=== PATIENT | female | born 1945 | race Caucasian/White ===

== ENCOUNTER 2017-10-13 14:43 | Emergency (ER) | payer MEDICARE ==
[2017-10-13] MEDS ORDERED: Fentanyl 100 MCG/2 ML VIAL ONE ×2 (15:19→18:20)
[2017-10-13] MEDS ORDERED: Ondansetron ODT 4 MG TAB ONE (15:19)
--- NOTE | 2017-10-13 15:25 | RAD ---
LEFT WRIST 3 VIEWS: Date: 10/13/17 HISTORY: Fall with injury and pain to wrist. FINDINGS: There is a transverse, slightly comminuted, impacted fracture of the distal radius with dorsal angula tion of the distal fragments, consistent with Colles type fracture. There is associated fracture of the ulnar styloid. IMPRESSION: Fracture distal radius and ulna. POS: [facility]
[2017-10-13] MEDS ORDERED: Lidocaine 1% PF 5 ML VIAL ONE (16:18)
--- NOTE | 2017-10-13 18:16 | RAD ---
TWO VIEWS LEFT WRIST 10/13/17 at 3:58 p.m. COMPARISON: 10/13/17 at 2:20 p.m. HISTORY: Fracture status post reduction. FINDINGS: The patient is reimaged in the frontal and lateral projection with casting material present. There is prominent residual dorsal displacement and dorsal angulation involving the comminuted distal left ra dial fracture. There is a fracture at the base of the ulnar styloid which is unchanged. IMPRESSION: Fracture deformity involving distal left radius and ulna. There is significant residual dorsal displa cement and dorsal angulation of the distal radial fracture on the lateral view. POS: [facility]
== END 2017-10-13 19:00 | disposition home or self-care (01) ==
LOC: ERS 14:43
DX: S52.502A Unspecified fracture of the lower end of left radius, initial encounter for closed fracture (principal); S52.612A Displaced fracture of left ulna styloid process, initial encounter for closed fracture; E11.9 Type 2 diabetes mellitus without complications; E78.5 Hyperlipidemia, unspecified; E78.2 Mixed hyperlipidemia; Z79.899 Other long term (current) drug therapy; W01.0XXA Fall on same level from slipping, tripping and stumbling without subsequent striking against object, initial encounter
CPT/HCPCS: 29125; 90471; 96374; 96375; 96376; J2001; J3010; Q0162

== ENCOUNTER 2017-10-14 06:39 | Emergency (ER) | payer MEDICARE ==
[2017-10-14] MEDS ORDERED: HYDROcodone/Acetaminophen 5/325 mg Tablet ONE (07:36)
--- NOTE | 2017-10-14 09:23 | RAD ---
LEFT WRIST 3 VIEWS: HISTORY: A 72-year-old female with a history of left arm pain following injury. COMPARISON: 10/13/17. FINDINGS: Again noted is a comminuted distal radial fracture with dorsal angulation and some foreshortening, bu t overall improved from the 10/13 study with splint placement. Displaced ulnar styloid process fractu re. IMPRESSION: Comminuted distal radial metadiaphyseal fracture with some extension intraarticularly as well as some dorsal angulation, but improved from the prior study. Stabilization with plaster splint. Bone dom neralization. Minimally displaced ulnar styloid process fracture. POS: [facility]
== END 2017-10-14 09:13 | disposition home or self-care (01) ==
LOC: ERS 06:39
DX: S52.502A Unspecified fracture of the lower end of left radius, initial encounter for closed fracture (principal); E11.9 Type 2 diabetes mellitus without complications; E78.5 Hyperlipidemia, unspecified; E78.2 Mixed hyperlipidemia; X58.XXXA Exposure to other specified factors, initial encounter

== ENCOUNTER 2017-11-19 14:53 | Outpatient (CLI) | payer MEDICARE | END 2017-11-19 14:54 | disposition home or self-care (01) | LOC: BICMAMMO 14:53 | PROVIDERS: ATTEND Internal Medicine Rheumatology | DX: M81.0 Age-related osteoporosis without current pathological fracture (principal) | CPT/HCPCS: 77080 ==

== ENCOUNTER 2018-05-24 01:28 | Emergency (ER) | payer MEDICARE ==
[2018-05-24 02:09] LABS: #Basophils 0.1 thou/uL (0.0-0.2); #Eosinphils 0.3 thou/uL (0.0-0.7); #Lymphocytes 2.4 thou/uL (1.20-3.40); #Monocytes 0.7 thou/uL (0.11-0.59); #Neutrophils 6.5 thou/uL (1.40-6.50); %Basophils 0.6 % (0.0-1.0); %Eosinophils 2.6 % (0.0-10.0); %Monocytes 7.1 % (0.0-10.0); %Neutrophils 65.7 % (42.0-75.0); Hemoglobin 13.2 g/dL (12.0-16.0); Mean Corpuscular HGB CONC 33.9 g/dL (32.0-36.0); Mean Corpuscular Hemoglobin 30.9 pg (27.0-31.0); Mean Corpuscular Volume 91.3 fL (78.0-98.0); Mean Platelet Volume 8.9 fL (7.4-10.4); Platelet Count 215 thou/uL (130-400); RBC Distribution Width 12.2 % (11.5-14.5); Red Blood Cell (RBC) Count 4.28 mill/uL (4.20-5.40)
[2018-05-24 02:16] LABS: Bilirubin Negative (Negative); Blood, Urine Large (Negative); Clarity TURBID (Clear); Glucose, Urine (Dipstick) Negative (Negative); Leukocyte Large (Negative); Nitrite Negative (Negative); Protein, Urine (Dipstick) 100 mg/dL (Neg-Trace); Specific Gravity, Urine 1.007 (1.002-1.036); Urobilinogen 0.2 mg/dL (0.2-1.0); pH, Urine 5.5 (5.0-9.0)
[2018-05-24 02:16] LABS: ALT (SGPT) 21 U/L (8-55); AST (SGOT) 21 U/L (5-34); Albumin 4.7 g/dL (3.4-4.8); Alkaline Phosphatase 61 U/L (40-150); Anion Gap 16 mmol/L (10-20); BUN (Urea Nitrogen) 15 mg/dL (9.8-20.1); Bilirubin, Total 0.4 mg/dL (0.2-1.2); Calc. Creatinine Clearance 0 mL/min (70-130); Calcium 10.1 mg/dL (7.8-10.44); Carbon Dioxide 24 mmol/L (23-31); Chloride 103 mmol/L (98-107); Estimated GFR-MDRD 57; Globulin 3.3 g/dL (2.4-3.5); Glucose 149 mg/dL (83-110); Potassium 3.9 mmol/L (3.5-5.1); Sodium 139 mmol/L (136-145)
[2018-05-24 02:19] LABS: Bacteria/HPF Rare-Few HPF (None Seen); Hyaline Casts/LPF 0-3 HYALINE CAST LPF (0-3 Hyaline); Pathc Cast-AUWi Flag 0.58 (0-2.49); Squamous Epithelial 0-3 HPF (0-3)
[2018-05-24 02:31] LABS: RBC/HPF 21-50 HPF (0-3)
[2018-05-24 02:32] LABS: Yeast-All Forms None Seen HPF (None Seen)
== END 2018-05-24 02:56 | disposition home or self-care (01) ==
LOC: ERS 01:28
DX: N30.91 Cystitis, unspecified with hematuria (principal); E11.9 Type 2 diabetes mellitus without complications; E78.2 Mixed hyperlipidemia
CPT/HCPCS: 36415; 80053; 81003; 81015; 85025; 99283

== ENCOUNTER 2019-02-15 10:58 | Emergency (ER) | payer MEDICARE ==
--- NOTE | 2019-02-15 11:43 | RAD ---
EXAM: XR Hand Lt 3 View STANDARD PROVIDED CLINICAL HISTORY: Pain status post injury COMPARISON: Wrist radiographs 10/14/2017 FINDINGS: There is a displaced intra-articular fracture involving the distal middle digit proximal phalanx with associated intra-articular gap and intra-articular step-off. No additional acute fracture is evident. Diffuse regional osteopenia. Scattered IP degenerative change. Sequela of prior distal radia l fracture. IMPRESSION: Displaced intra-articular fracture involving the middle digit proximal phalanx at the PIP joint.
[2019-02-15] MEDS ORDERED: Bupivacaine 0.5% 10 ML VIAL ONE (13:28)
--- NOTE | 2019-02-15 13:33 | RAD ---
EXAM: Left elbow: 4 views INDICATIONS: Fall with injury COMPARISON: None. FINDINGS: Mild degenerative change. Spurring from the coronoid. No evidence of fracture. No evidence of joint effusion. IMPRESSION: No acute finding
--- NOTE | 2019-02-15 13:34 | RAD ---
EXAM: Left wrist: 3 views INDICATIONS: Fall with injury COMPARISON: 10/14/2017 FINDINGS: Previously noted fracture distal radius shows evidence of healing with mild deformity. Disp laced fracture of the ulnar styloid is old. There are degenerative changes. IMPRESSION: Old healed fracture with deformity. No acute fracture identified.
== END 2019-02-15 14:02 | disposition home or self-care (01) ==
LOC: ERS 10:58
DX: S62.613A Displaced fracture of proximal phalanx of left middle finger, initial encounter for closed fracture (principal); M19.90 Unspecified osteoarthritis, unspecified site; E11.9 Type 2 diabetes mellitus without complications; E78.2 Mixed hyperlipidemia; Z79.899 Other long term (current) drug therapy; W06.XXXA Fall from bed, initial encounter
CPT/HCPCS: 64450; J3490

== ENCOUNTER 2020-04-24 13:35 | Outpatient (CLI) | payer MEDICARE ==
--- NOTE | 2020-04-24 14:29 | MMO ---
Bilateral MAMMO Bilat Screen [facility]. CLINICAL HISTORY: Patient is 75 years old and is seen for screening. The patient has no family history of breast cancer. The patient has no personal history of cancer. VIEWS: The views performed were: bilateral craniocaudal with tomosynthesis and bilateral mediolateral oblique with tomosynthesis. FILMS COMPARED: The present examination has been compared to prior imaging studies performed at [facility] on 08/26/2007, 02/09/2013 and 05/01/2015. This study has been interpreted with the assistance of computer-aided detection. MAMMOGRAM FINDINGS: There are scattered fibroglandular densities. There are stable benign appearing calcifications seen in both breasts. There are no suspicious masses, suspicious calcifications, or new areas of architectural distortion. IMPRESSION: THERE IS NO MAMMOGRAPHIC EVIDENCE OF MALIGNANCY. A ROUTINE FOLLOW-UP MAMMOGRAM IN 1 YEAR IS RECOMMENDED. THE RESULTS OF THIS EXAM WERE SENT TO THE PATIENT. ACR BI-RADS Category 2 - Benign finding MAMMOGRAPHY NOTE: 1. A negative mammogram report should not delay a biopsy if a dominant of clinically suspicious mass is present. 2. Approximately 10% to 15% of breast cancers are not detected by mammography. 3. Adenosis and dense breasts may obscure an underlying neoplasm. Reported by: VERO ROCHA MD Electonically Signed: [id number]
--- NOTE | 2020-04-24 15:54 | BD ---
Exam: DEXA Bone Density 04/24/20 HISTORY: Postmenopausal. Lumbar Spine: BMD (g/cm2) T-SCORE L1 0.741 2.3 L2 0.760 2.4 L3 0.857 -2.1 L4 0.836 -2.0 L1-L4 0.803 -2.2 Left Femoral Neck: 0.521 -3.0 Total Femur: 0.714 -1.9 Impression: 1. Osteoporosis left femoral neck. 2. Osteopenia of the lumbar spine. POS: [facility]
== END 2020-04-24 13:36 | disposition home or self-care (01) ==
LOC: BICMAMMO 13:35
PROVIDERS: ATTEND Internal Medicine
DX: Z12.31 Encounter for screening mammogram for malignant neoplasm of breast (principal); Z13.820 Encounter for screening for osteoporosis; M81.0 Age-related osteoporosis without current pathological fracture; M85.88 Other specified disorders of bone density and structure, other site
CPT/HCPCS: 77063; 77067; 77080

== ENCOUNTER 2022-10-29 13:53 | Outpatient (CLI) | payer OTHER | END 2022-10-29 13:54 | disposition home or self-care (01) | LOC: BICMAMMO 13:53 | PROVIDERS: ATTEND Internal Medicine | DX: Z12.31 Encounter for screening mammogram for malignant neoplasm of breast (principal) | CPT/HCPCS: 77063; 77067 ==

== ENCOUNTER 2024-12-22 13:52 | Outpatient (CLI) | payer OTHER | END 2024-12-22 13:53 | disposition home or self-care (01) | LOC: BICMAMMO 13:52 | PROVIDERS: ATTEND Family Medicine | DX: M81.0 Age-related osteoporosis without current pathological fracture (principal) | CPT/HCPCS: 77080 ==